=== PATIENT | female | born 1960 | race Caucasian/White ===

== ENCOUNTER → 2017-04-24 | Day surgery (SDC) | payer OTHER ==
--- NOTE | 2017-04-25 12:54 | PATH ---
Cytology Non-Gynecological Report Patient Name: CELESTE MAGALLANES [facility]. Rec. #: [id number] /Age/Gender: 1960 (Age: 57) / F Account: [id number] [facility] Taken: 04/24/2017 Received: 04/24/2017 Reported: 04/25/2017 Physicians: Kedar Yu M.D. Specimen(s) Received RIGHT THYROID FNA Clinical History Right thyroid nodule 1.9 x 0.84 x 1.3 cm Final Diagnosis THYROID, RIGHT, FINE NEEDLE ASPIRATION: SATISFACTORY FOR EVALUATION. BETHESDA CLASS II: BENIGN. CYTOLOGIC FINDINGS SHOW A BENIGN FOLLICULAR NODULE WITH FEATURES SUGGESTIVE OF LYMPHOCYTIC THYROIDITIS. FEW SMALL FOLLICULAR CELLS DISPERSED CLUSTERS AND SHEETS IN A BACKGROUND OF LYMPHOCYTES, LYMPHOHISTIOCYTIC AGGREGATES, AND LYMPHOID TANGLES. Comment: Suggest clinical/radiologic and serologic correlation. Electronically Signed Natalia Lopez M.D. Gross Description Received are eight direct smears, four of which are air-dried and Diff-Quik stained, and four of which are alcohol fixed and Pap stained. Also received is 20 ml of bloody formalin from which one cellblock is prepared.
== END | disposition home or self-care (01) ==
LOC: JRADIR 09:14
PROVIDERS: ATTEND Internal Medicine Endocrinology, Diabetes & Metabolism
PROC: 0G9H3ZX Drainage of Right Thyroid Gland Lobe, Percutaneous Approach, Diagnostic (ICD-10-PCS; principal; 2017-04-24)
DX: E04.1 Nontoxic single thyroid nodule (principal)
CPT/HCPCS: 76942; 88173; 88305-TC

== ENCOUNTER 2017-09-08 15:07 | Emergency (ER) | payer OTHER ==
--- NOTE | 2017-09-08 15:16 | PDOC ---
Rapid Medical Evaluation Time Seen by Provider: 09/08/17 15:14 Medical Evaluation: Allergies Allergy/AdvReac Type Severity Reaction Status Date / Time prochlorperazine edisylate Allergy Severe Verified 09/20/15 08:48 [From Compazine] prochlorperazine maleate Allergy Severe rash , Verified 09/20/15 08:48 [From Compazine] "shivers" 09/08/17 15:14 I have performed a brief in-person evaluation of this patient. The patient presents with a chief complaint of: left knee pain for 2 weeks Pertinent physical exam findings: No swelling or erythema. FROM. -Shelbie's I have ordered the following: xray The patient will proceed to the ED for further evaluation. Discharge Disposition - Diagnosis Knee pain, left - Referrals - Patient Instructions - Post Discharge Activity
[2017-09-08 15:21] VITALS: BP 105/70; PULSE 68; TEMP 98.1; BMI 29.6
--- NOTE | 2017-09-08 16:17 | PDOC ---
History of Present Illness - General Chief Complaint: Injury Stated Complaint: LT KNEE PAIN Time Seen by Provider: 09/08/17 15:14 - History of Present Illness Initial Comments: The 7-year-old female presents for evaluation of atraumatic left knee pain. She course of the medial aspect of the left knee as the area of her discomfort describes a pain is achy exacerbated with movement motion relieved with rest and free of radiation. No prior problems left knee. 09/08/17 16:16 Past History - Past Medical History Allergies/Adverse Reactions: Allergies Allergy/AdvReac Type Severity Reaction Status Date / Time prochlorperazine edisylate Allergy Severe Verified 09/08/17 15:17 [From Compazine] prochlorperazine maleate Allergy Severe rash , Verified 09/08/17 15:17 [From Compazine] "shivers" Home Medications: Ambulatory Orders Cholecalciferol (Vitamin D3) [Vitamin D3] 50,000 unit PO WEEKLY 09/18/15 Ferrous Sulfate [Feosol] 325 mg PO BID 09/18/15 Levothyroxine [Synthroid -] 50 mcg PO DAILY 09/18/15 Anemia: Yes Asthma: No Cancer: No Cardiac Disorders: No CVA: No COPD: No CHF: No Dementia: No Diabetes: No GI Disorders: No Disorders: No HTN: No Hypercholesterolemia: No Liver Disease: No Psychiatric Problems: Yes (DEPRESSION) Seizures: No Thyroid Disease: Yes - Surgical History Appendectomy: Yes Cholecystectomy: Yes Orthopedic Surgery: Yes (right shoulder sx-rotator cuff) - Suicide/Smoking/Psychosocial Hx Smoking History: Never smoked Have you smoked in the past 12 months: No Information on smoking cessation initiated: No Hx Alcohol Use: No Drug/Substance Use Hx: No Substance Use Type: None Hx Substance Use Treatment: No Review of Systems - Review of Systems Musculoskeletal: Yes: Joint Pain All Other Systems: Reviewed and Negative *Physical Exam - Vital Signs Last Vital Signs Temp Pulse Resp BP Pulse Ox 98.1 F 68 16 105/70 100 09/08/17 15:18 09/08/17 15:18 09/08/17 15:18 09/08/17 15:18 09/08/17 15:18 - Physical Exam Comments: Left knee skin color and temperature within normal limits chest full nonpainful range of motion. Tenderness at the medial joint line no other areas of tenderness. No evidence of instability. By Soft and nontender. She has no gross sensorimotor deficits. She's Norvasc intact. 09/08/17 16:17 Medical Decision Making - Medical Decision Making Left knee x-ray shows moderate decreased medial joint space superior traction osteophyte in the patella no acute fracture or trauma 09/08/17 16:30 *DC/Admit/Observation/Transfer Diagnosis at time of Disposition: Knee pain, left, Osteoarthritis of knee - Discharge Dispostion Disposition: HOME Condition at time of disposition: Stable Decision to Admit order: No - Referrals Referrals: Dario Zazueta MD [Staff Physician] - - Patient Instructions Printed Discharge Instructions: Osteoarthritis, DI for Osteoarthritis Additional Instructions: He may ice her knee for 20 minutes at a time 4-5 times a day for comfort. He should follow-up with an orthopedic surgeon for evaluation your left knee osteoarthritis. Return to the emergency room if symptoms worsen or go unresolved prior to follow-up - Post Discharge Activity
== END 2017-09-08 16:42 | disposition home or self-care (01) ==
LOC: JERFT 15:07
DX: M17.12 Unilateral primary osteoarthritis, left knee (principal); D64.9 Anemia, unspecified; F32.9 Major depressive disorder, single episode, unspecified; E07.9 Disorder of thyroid, unspecified
CPT/HCPCS: 73562-TC-LT-FY; 99281-25

== ENCOUNTER 2018-06-14 11:43 | Emergency (ER) | payer OTHER ==
[2018-06-14 12:10] VITALS: BP 98/65; PULSE 92; TEMP 98.7; BMI 29.2
--- NOTE | 2018-06-14 12:25 | PDOC ---
History of Present Illness - General Chief Complaint: Pain, Acute Stated Complaint: abd pain Time Seen by Provider: 06/14/18 12:12 History Source: Patient Exam Limitations: No Limitations Past History - Past Medical History Allergies/Adverse Reactions: Allergies Allergy/AdvReac Type Severity Reaction Status Date / Time prochlorperazine edisylate Allergy Severe Verified 06/14/18 12:10 [From Compazine] prochlorperazine maleate Allergy Severe rash , Verified 06/14/18 12:10 [From Compazine] "shivers" Home Medications: Ambulatory Orders Cholecalciferol (Vitamin D3) [Vitamin D3] 50,000 unit PO WEEKLY 09/18/15 Ferrous Sulfate [Feosol] 325 mg PO BID 09/18/15 Levothyroxine [Synthroid -] 50 mcg PO DAILY 09/18/15 Anemia: Yes Asthma: No Cancer: No Cardiac Disorders: No CVA: No COPD: No CHF: No Dementia: No Diabetes: No GI Disorders: No Disorders: No HTN: No Hypercholesterolemia: No Liver Disease: No Psychiatric Problems: Yes (DEPRESSION) Seizures: No Thyroid Disease: Yes - Surgical History Appendectomy: Yes Cholecystectomy: Yes Orthopedic Surgery: Yes (right shoulder sx-rotator cuff) - Suicide/Smoking/Psychosocial Hx Smoking History: Never smoked Have you smoked in the past 12 months: No Information on smoking cessation initiated: No Hx Alcohol Use: No Drug/Substance Use Hx: No Substance Use Type: None Hx Substance Use Treatment: No *Physical Exam - Vital Signs Last Vital Signs Temp Pulse Resp BP Pulse Ox 98.7 F 92 H 16 98/65 100 06/14/18 11:50 06/14/18 11:50 06/14/18 11:50 06/14/18 11:50 06/14/18 11:50 - Physical Exam General Appearance: No: Apparent Distress Respiratory/Chest: positive: Lungs Clear, Normal Breath Sounds. negative: Respiratory Distress Cardiovascular: positive: Regular Rhythm, Regular Rate, S1, S2. negative: Murmur Female Pelvic Exam: positive: other (+R pelvic TTP) Gastrointestinal/Abdominal: positive: Normal Bowel Sounds, Soft. negative: Tender, Distended, Guarding, Rebound Integumentary: positive: Normal Color Neurologic: positive: Alert, Normal Mood/Affect Moderate Sedation - Procedure Monitoring Vital Signs: Procedure Monitoring Vital Signs Temperature 98.7 F 06/14/18 11:50 Pulse Rate 92 H 06/14/18 11:50 Respiratory Rate 16 06/14/18 11:50 Blood Pressure 98/65 06/14/18 11:50 O2 Sat by Pulse Oximetry (%) 100 06/14/18 11:50 ED Treatment Course - LABORATORY CBC & Chemistry Diagram: 06/14/18 13:00 06/14/18 13:00 Medical Decision Making - Medical Decision Making 58 y/o F with hx of hypothyroid, anemia, appendectomy, cholecystectomy, R ovarian cystectomy presents with pelvic pain x 5 days and then NBNB emesis from last night. Denies fever, sob, cp, diarrhea, urinary complaints. 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 It was a pleasure taking care of you. Your ultrasound shows some thickening of your endometrium, raising concern for possible cancer Please follow-up with your heat treat technician regarding results of your ultrasound Return to the Emergency Department if your symptoms worsen or persist or have other concerning symptoms. - Post Discharge Activity
[2018-06-14] MEDS ORDERED: ACETAMINOPHEN 325 MG TABLET (FP) PO ONE (12:47)
[2018-06-14] MEDS ORDERED: ACETAMINOPHEN 325 MG TABLET (FP) ONE (12:52)
[2018-06-14 13:25] LABS: BASO % 0.2 % (0-2.0); EOS % 0.1 % (0-4.5); HEMATOCRIT 38.7 % (32.4-45.2); HEMOGLOBIN 13.3 GM/dL (10.7-15.3); LYMPH % 4.5 % (8-40); MCH 31.9 pg (25.7-33.7); MCHC 34.5 g/dl (32.0-36.0); MEAN CELL VOLUME 92.6 fl (80-96); MEAN PLT VOLUME 9.4 fl (7.5-11.1); MONO % 3.5 % (3.8-10.2); NEUT % 91.7 % (42.8-82.8); PLATELET COUNT 244 K/MM3 (134-434); RBC 4.18 M/mm3 (3.60-5.2); RDW 13.7 % (11.6-15.6); WHITE BLOOD COUNT 10.9 K/mm3 (4.0-10.0)
[2018-06-14 13:41] LABS: URINE APPEARANCE CLEAR; URINE BILIRUBIN NEGATIVE (<2.0 mg/dL); URINE COLOR YELLOW; URINE GLUCOSE (UA) NEGATIVE (NEGATIVE); URINE KETONE NEGATIVE (NEGATIVE); URINE LEUK ESTERASE NEGATIVE (NEGATIVE); URINE NITRITE NEGATIVE (NEGATIVE); URINE PROTEIN 1+ (NEGATIVE)
[2018-06-14 13:50] LABS: EPI CELLS RARE /HPF (FEW); URINE MUCUS RARE
[2018-06-14 14:15] LABS: ANION GAP 6 MMOL/L (8-16); BLOOD UREA NITROGEN 17 mg/dL (7-18); CALCIUM 8.5 mg/dL (8.5-10.1); CHLORIDE 103 mmol/L (98-107); CO2 29 mmol/L (21-32); CREATININE 0.8 mg/dL (0.55-1.3); GLUCOSE,RANDOM 110 mg/dL (74-106); POTASSIUM 3.5 mmol/L (3.5-5.1); SODIUM 139 mmol/L (136-145)
[2018-06-14 16:27] LABS: ANISOCYTOSIS 0; MACROCYTOSIS 0; PLATELET ESTIMATE NORMAL
== END 2018-06-14 15:08 | disposition home or self-care (01) ==
LOC: JER 11:43
DX: R10.2 Pelvic and perineal pain (principal); D64.9 Anemia, unspecified; E03.9 Hypothyroidism, unspecified; Z88.8 Allergy status to other drugs, medicaments and biological substances
CPT/HCPCS: 36415; 76817-TC; 80048; 81003; 81015; 85025; 99282-25

== ENCOUNTER 2018-08-20 11:17 | Emergency (ER) | payer OTHER ==
[2018-08-20 11:33] VITALS: BP 131/68; PULSE 71; TEMP 98.1; BMI 29.8
[2018-08-20] MEDS ORDERED: ACETAMINOPHEN 325 MG TABLET (FP) PO ONE (12:14)
--- NOTE | 2018-08-20 12:14 | PDOC ---
History of Present Illness - General Chief Complaint: Pain, Acute Stated Complaint: RT. ABD. PAIN Time Seen by Provider: 08/20/18 11:46 History Source: Patient - History of Present Illness Timing/Duration: reports: intermittent Past History - Past Medical History Allergies/Adverse Reactions: Allergies Allergy/AdvReac Type Severity Reaction Status Date / Time prochlorperazine edisylate Allergy Severe Verified 08/20/18 11:29 [From Compazine] prochlorperazine maleate Allergy Severe rash , Verified 08/20/18 11:29 [From Compazine] "shivers" Home Medications: Ambulatory Orders Cholecalciferol (Vitamin D3) [Vitamin D3] 50,000 unit PO WEEKLY 09/18/15 Ferrous Sulfate [Feosol] 325 mg PO BID 09/18/15 Levothyroxine [Synthroid -] 50 mcg PO DAILY 09/18/15 Anemia: Yes Asthma: No Cancer: No Cardiac Disorders: No CVA: No COPD: No CHF: No Dementia: No Diabetes: No GI Disorders: No Disorders: No HTN: No Hypercholesterolemia: No Liver Disease: No Psychiatric Problems: Yes (DEPRESSION) Seizures: No Thyroid Disease: Yes - Surgical History Appendectomy: Yes Cholecystectomy: Yes Orthopedic Surgery: Yes (right shoulder sx-rotator cuff) - Immunization History Immunization Up to Date: Yes - Suicide/Smoking/Psychosocial Hx Smoking History: Never smoked Have you smoked in the past 12 months: No Hx Alcohol Use: No Drug/Substance Use Hx: No Substance Use Type: None Hx Substance Use Treatment: No Review of Systems - Review of Systems Constitutional: No: Chills, Fever Respiratory: No: Shortness of Breath Cardiac (ROS): No: Chest Pain ABD/GI: Yes: Nausea. No: Blood Streaked Bowels, Constipated, Diarrhea, Vomiting , Tarry Stools : Yes: Flank Pain. No: Burning, Dysuria, Discharge, Hematuria *Physical Exam - Vital Signs Last Vital Signs Temp Pulse Resp BP Pulse Ox 98.1 F 71 18 131/68 100 08/20/18 11:30 08/20/18 11:30 08/20/18 11:30 08/20/18 11:30 08/20/18 11:30 - Physical Exam General Appearance: Yes: Appropriately Dressed. No: Apparent Distress HEENT: positive: Normal Voice Neck: positive: Supple Respiratory/Chest: positive: Lungs Clear, Normal Breath Sounds. negative: Respiratory Distress Cardiovascular: positive: Regular Rate, S1, S2 Gastrointestinal/Abdominal: positive: Normal Bowel Sounds, Tender (minimal ttp to RUQ), Soft. negative: Distended, Guarding, Rebound Musculoskeletal: negative: CVA Tenderness Integumentary: positive: Dry, Warm Neurologic: positive: Fully Oriented, Alert, Normal Mood/Affect ED Treatment Course - LABORATORY CBC & Chemistry Diagram: 08/20/18 12:16 08/20/18 12:16 Medical Decision Making - Medical Decision Making 08/20/18 12:06 58 yo F, s/p nathanael and appy remotely, here w/ RUQ pain x 5 days. Patient unable to describe pain but states it is a 9 out of 10 at its worse and seemed to worsen with certain movements. Reports a minor fall several hours prior to pain but states she used both hands to break fall and never hit her chest or torso. Taking motrin, which relieves pain for several hours per patient. Pain not worsened with food. Had nausea yesterday morning that has since resolved. No vomiting, change in bowel movements, melena, bright red blood per rectum, dysuria, hematuria, fever, chills, chest pain or shortness of breath. See exam R flank pain Possible MSK given minor fall, s/p nathanael and appy, zachary likely pancreatitis, uti /pyelo or ACS Exam remarkable only for minimal ttp to RUQ -pain control -ekg -labs -anticipate dispo 08/20/18 12:32 08/20/18 15:02 Ekg and labs wnl. UA pending. Pt refuses to wait for results, requesting that I call her with results. Will dc with PMD follow-up as needed *DC/Admit/Observation/Transfer Diagnosis at time of Disposition: Right flank pain - Discharge Dispostion Disposition: HOME Condition at time of disposition: Improved - Referrals - Patient Instructions Additional Instructions: The cause of your pain might be muscular as your EKG and labs were all normal. You decided to leave prior to urine results. We will call you with results Continue taking Tylenol or Motrin for your pain and if symptoms persisst, follow up with your PMD - Post Discharge Activity
[2018-08-20 12:27] LABS: BASO % 0.7 % (0-2.0); EOS % 2.4 % (0-4.5); HEMATOCRIT 36.2 % (32.4-45.2); HEMOGLOBIN 12.1 GM/dL (10.7-15.3); LYMPH % 25.3 % (8-40); MCH 31.2 pg (25.7-33.7); MCHC 33.4 g/dl (32.0-36.0); MEAN CELL VOLUME 93.3 fl (80-96); MEAN PLT VOLUME 9.4 fl (7.5-11.1); MONO % 7.9 % (3.8-10.2); NEUT % 63.7 % (42.8-82.8); PLATELET COUNT 260 K/MM3 (134-434); RBC 3.88 M/mm3 (3.60-5.2); RDW 13.9 % (11.6-15.6); WHITE BLOOD COUNT 9.6 K/mm3 (4.0-10.0)
[2018-08-20] MEDS ORDERED: ACETAMINOPHEN 325 MG TABLET (FP) ONE (12:40)
[2018-08-20 13:03] LABS: ALBUMIN 3.5 g/dl (3.4-5.0); ALK PHOS 133 U/L (45-117); ANION GAP 5 MMOL/L (8-16); BILIRUBIN,TOTAL 0.3 mg/dL (0.2-1); BLOOD UREA NITROGEN 13 mg/dL (7-18); CALCIUM 8.9 mg/dL (8.5-10.1); CHLORIDE 107 mmol/L (98-107); CO2 28 mmol/L (21-32); CREATININE 0.7 mg/dL (0.55-1.3); GLUCOSE,RANDOM 84 mg/dL (74-106); LIPASE 193 U/L (73-393); SGOT/AST 9 U/L (15-37); SGPT/ALT 16 U/L (13-61); SODIUM 139 mmol/L (136-145); TOT PROT 7.8 g/dl (6.4-8.2)
[2018-08-20 14:58] LABS: URINE APPEARANCE CLEAR; URINE BILIRUBIN NEGATIVE (NEGATIVE); URINE COLOR YELLOW; URINE GLUCOSE (UA) NEGATIVE (NEGATIVE); URINE KETONE NEGATIVE (NEGATIVE); URINE LEUK ESTERASE NEGATIVE (NEGATIVE); URINE NITRITE NEGATIVE (NEGATIVE); URINE PROTEIN NEGATIVE (NEGATIVE); URINE UROBILINOGEN 0.2 mg/dL (0.2-1.0)
[2018-08-20 15:00] LABS: HCG,QUALITATIVE URINE Negative
--- NOTE | 2018-08-20 16:18 | EKG ---
Test Reason : Blood Pressure : / mmHG Vent. Rate : 060 BPM Atrial Rate : 060 BPM P-R Int : 140 ms QRS Dur : 078 ms QT Int : 422 ms P-R-T Axes : 028 034 016 degrees QTc Int : 422 ms NORMAL SINUS RHYTHM NORMAL ECG WHEN COMPARED WITH ECG OF 20-MAR-2015 10:02, NONSPECIFIC T WAVE ABNORMALITY NOW EVIDENT IN ANTERIOR LEADS Confirmed by OBI COBB MD ([id number]) on 08/20/2018 4:17:56 PM Referred By: Confirmed By:OBI COBB MD
== END 2018-08-20 15:10 | disposition home or self-care (01) ==
LOC: JER 11:17
DX: R10.9 Unspecified abdominal pain (principal); D64.9 Anemia, unspecified; E03.9 Hypothyroidism, unspecified
CPT/HCPCS: 36415; 80053; 81003; 83690; 84703; 85025; 93005; 93010; 99281-25

== ENCOUNTER 2020-04-04 05:22 | Day surgery (SDC) | payer OTHER ==
[2020-04-03 11:00] VITALS: BMI 31.2
[2020-04-04 10:06] VITALS: TEMP 97.7
[2020-04-04 10:40] VITALS: PULSE 61
[2020-04-04 11:37] VITALS: BP 111/66
== END 2020-04-04 11:30 | disposition home or self-care (01) ==
LOC: JASU-ENDO 05:22
PROVIDERS: ATTEND Internal Medicine Gastroenterology
PROC: 0DJD8ZZ Inspection of Lower Intestinal Tract, Via Natural or Artificial Opening Endoscopic (ICD-10-PCS; principal; 2020-04-04 09:30)
DX: Z51.11 Encounter for antineoplastic chemotherapy (principal); Z86.010 Personal history of colon polyps

== ENCOUNTER 2020-05-01 09:29 | Emergency (ER) | payer OTHER ==
[2020-05-01 09:43] VITALS: BP 106/79; PULSE 105; TEMP 97.9; BMI 32.1
[2020-05-01] MEDS ORDERED: ACETAMINOPHEN 1000 MG/100 ML BAG IVPB ONE (10:53)
[2020-05-01] MEDS ORDERED: METOCLOPRAMIDE HCL INJECTION 10 MG/2 ML VIAL IVPB ONE (10:53)
[2020-05-01] MEDS ORDERED: ACETAMINOPHEN INJECTION 100 ML IVPB ONE (11:57)
[2020-05-01] MEDS ORDERED: METOCLOPRAMIDE HCL INJECTION 10 MG/2 ML VIAL ONE (11:57)
[2020-05-01] MEDS ORDERED: ACETAMINOPHEN/CAFFEINE/BUTALBITAL 1 TAB PO ONE (12:41)
[2020-05-01] MEDS ORDERED: ACETAMINOPHEN/CAFFEINE/BUTALBITAL 1 TAB ONE (12:42)
== END 2020-05-01 12:48 | disposition home or self-care (01) ==
LOC: JER 09:29
PROC: 3E0333Z Introduction of Anti-inflammatory into Peripheral Vein, Percutaneous Approach (ICD-10-PCS; principal; 2020-05-01)
PROC: 3E033GC Introduction of Other Therapeutic Substance into Peripheral Vein, Percutaneous Approach (ICD-10-PCS; 2020-05-01)
DX: R51.9 Headache, unspecified (principal)
CPT/HCPCS: 99284-25; J0131

== ENCOUNTER 2020-08-17 17:07 | Emergency (ER) | payer OTHER ==
[2020-08-17 17:23] VITALS: BP 121/80; PULSE 78; TEMP 98.1; BMI 31.7
[2020-08-17] MEDS ORDERED: CYCLOBENZAPRINE HCL 10 MG TABLET (FP) PO ONE (18:13)
[2020-08-17] MEDS ORDERED: KETOROLAC TROMETHAMINE 60 MG/2 ML VIAL IM ONE (18:13)
[2020-08-17] MEDS ORDERED: CYCLOBENZAPRINE HCL 10 MG TABLET (FP) ONE (18:15)
[2020-08-17] MEDS ORDERED: KETOROLAC TROMETHAMINE 60 MG/2 ML VIAL ONE (18:15)
== END 2020-08-17 18:54 | disposition home or self-care (01) ==
LOC: JERFT 17:07
PROC: 3E0233Z Introduction of Anti-inflammatory into Muscle, Percutaneous Approach (ICD-10-PCS; principal; 2020-08-17)
DX: M54.2 Cervicalgia (principal); M54.9 Dorsalgia, unspecified
CPT/HCPCS: 72050-TC-FY; 99284-25

== ENCOUNTER 2021-02-21 08:36 | Emergency (ER) | payer OTHER ==
[2021-02-21 08:51] VITALS: BP 122/76; PULSE 72; TEMP 97.6; BMI 23.6
[2021-02-21] MEDS ORDERED: KETOROLAC TROMETHAMINE 30 MG/1 ML VIAL IM ONE (09:16)
[2021-02-21] MEDS ORDERED: KETOROLAC TROMETHAMINE 30 MG/1 ML VIAL ONE (09:22)
== END 2021-02-21 09:45 | disposition home or self-care (01) ==
LOC: JERFT 08:36 → JER 08:36 → JERFT 09:45
PROC: 3E0233Z Introduction of Anti-inflammatory into Muscle, Percutaneous Approach (ICD-10-PCS; principal; 2021-02-21)
DX: M54.42 Lumbago with sciatica, left side (principal)
CPT/HCPCS: 96372; 99283-25

== ENCOUNTER 2022-03-14 04:42 | Day surgery (SDC) | payer OTHER ==
[2022-03-13 14:54] VITALS: BMI 23.6
[2022-03-14 10:38] VITALS: RESP 18
[2022-03-14 12:06] VITALS: BP 109/89; PULSE 58
[2022-03-14 14:33] VITALS: TEMP 98
== END 2022-03-14 12:32 | disposition home or self-care (01) ==
LOC: JASU-ENDO 04:42
PROVIDERS: ATTEND Internal Medicine Gastroenterology
PROC: 0DB78ZX Excision of Stomach, Pylorus, Via Natural or Artificial Opening Endoscopic, Diagnostic (ICD-10-PCS; principal; 2022-03-14 12:15)
DX: K21.9 Gastro-esophageal reflux disease without esophagitis (principal); K29.50 Unspecified chronic gastritis without bleeding
CPT/HCPCS: 88305-TC; 88342-TC

== ENCOUNTER 2023-11-27 12:39 | Emergency (ER) | payer OTHER ==
[2023-11-27 12:53] VITALS: TEMP 98.2; BMI 31.9
[2023-11-27 13:38] LABS: BASO % 0.3 % (0-2.0); EOS % 1.6 % (0-4.5); HEMATOCRIT 38.8 % (32.4-45.2); HEMOGLOBIN 13.1 GM/dL (10.7-15.3); LYMPH % 26.4 % (8-40); MCH 31.2 pg (25.7-33.7); MCHC 33.9 g/dl (32.0-36.0); MEAN CELL VOLUME 92.3 fl (80-96); MEAN PLT VOLUME 9.4 fl (7.5-11.1); MONO % 8.1 % (3.8-10.2); NEUT % 63.6 % (42.8-82.8); PLATELET COUNT 276 10^3/uL (134-434); WHITE BLOOD COUNT 10.2 K/mm3 (4.0-10.0)
[2023-11-27] MEDS ORDERED: MECLIZINE HCL 25 MG TABLET (FP) ONE (13:45)
[2023-11-27] MEDS: MECLIZINE HCL 25 MG TABLET (FP) PO ONE (13:48)
[2023-11-27] MEDS ORDERED: LORazepam 0.5 MG TABLET ONE (13:49)
[2023-11-27] MEDS: SODIUM CHLORIDE 0.9% 500 ML INFUS.BAG IV ONE (13:54)
[2023-11-27] MEDS: LORazepam 2 MG TABLET PO ONE (13:55)
[2023-11-27 14:37] LABS: BLOOD UREA NITROGEN 18.1 mg/dL (7-18)
[2023-11-27 14:38] LABS: ALBUMIN 3.7 g/dl (3.4-5.0); BILIRUBIN,TOTAL 0.5 mg/dL (0.2-1); CALCIUM 8.9 mg/dL (8.5-10.1); CREATININE 0.9 mg/dL (0.55-1.3); POTASSIUM 4.1 mmol/L (3.5-5.1)
[2023-11-27 15:56] VITALS: BP 125/69; PULSE 74; RESP 16
[2023-11-27 21:24] LABS: HIV INTERPRETATION NEGATIVE (NEGATIVE)
== END 2023-11-27 15:56 | disposition home or self-care (01) ==
LOC: JER 12:39
DX: R42 Dizziness and giddiness (principal)
CPT/HCPCS: 36415; 70450-TC; 80053; 84439; 84443; 84484; 85025; 86803; 87389; 93005; 93010; 99285-25